=== PATIENT | male | born 1965 | race Caucasian/White ===

== ENCOUNTER 2018-05-16 13:43 | Outpatient (CLI) | payer OTHER ==
--- NOTE | 2018-05-16 14:15 | XRAY Report ---
Reason: R ACL REPAIR 96 NOW WITH MEDIAL JOINT PAIN, NO REC Procedure Date: 05/16/2018 Accession Number: [id number] / [id number] Procedure: XR - Knee 3 View RT CPT Code: FULL RESULT: EXAM: RIGHT KNEE RADIOGRAPHY EXAM DATE: 05/16/2018 01:55 PM. CLINICAL HISTORY: R ACL repair 1996 now with medial joint pain, no known trauma or specific injury. COMPARISON: None. TECHNIQUE: 3 views. FINDINGS: Bones: No fracture or bone lesion. There is evidence of prior ACL repair with anchors in the distal femur and proximal tibia. There is lucency around the tibial anchor measuring approximately 3.5 mm. Joints: No subluxation or dislocation. A large knee joint effusion is present. There is mild joint space narrowing at the medial compartment and patellofemoral compartment. There is mild tricompartmental osteophyte formation, most advanced at the patellofemoral compartment. Soft Tissues: Normal. No soft tissue swelling. IMPRESSION: 1. Evidence of prior ACL repair. There is lucency around the proximal tibial anchor, raising the possibility of loosening or infection. 2. Large knee joint effusion. 3. Mild degenerative osteoarthritis, most advanced at the patellofemoral compartment. [facility]
== END 2018-05-16 13:44 | disposition home or self-care (01) ==
LOC: DI 13:43
PROVIDERS: ATTEND Family Medicine
DX: M25.461 Effusion, right knee (principal); M17.11 Unilateral primary osteoarthritis, right knee

== ENCOUNTER 2018-06-18 09:20 | Outpatient (CLI) | payer OTHER ==
--- NOTE | 2018-06-20 13:42 | MRI Report ---
Reason: R ACL REPAIR NEW SWELLING PAIN Procedure Date: 06/18/2018 Accession Number: [id number] / [id number] Procedure: MRI - Knee RT W/O CPT Code: FULL RESULT: EXAM: RIGHT KNEE MRI WITHOUT CONTRAST EXAM DATE: 06/18/2018 10:44 AM. CLINICAL HISTORY: Right ACL repair. New swelling and pain. COMPARISON: 05/16/2018 radiograph. TECHNIQUE: Multiplanar, multisequence T1-weighted and fluid-sensitive sequences of the knee without contrast. Other: None. FINDINGS: Bones: Moderate tibiofemoral and mild patellofemoral osteophytes are present. No fractures. No periarticular marrow edema. Articular Cartilage: The central patellar cartilage demonstrates mild thinning and surface irregularity. There is moderate thinning and surface irregularity of the central trochlear cartilage. A focus of full-thickness cartilage loss from the inferior lateral femoral condyle measures 6 x 6 mm. A focus of full-thickness cartilage loss in the inferior medial femoral condyle measures 18 x 19 mm. Medial Meniscus: Longitudinal and partial radial tearing is seen in the posterior horn of the medial meniscus. Lateral Meniscus: The lateral meniscus is intact. Cruciate Ligaments: The anterior cruciate ligament has been reconstructed and the graft is intact. The posterior cruciate ligament is intact. Collateral Ligaments: The medial collateral and lateral collateral ligamentous structures are intact. Tendons: The quadriceps, popliteus, and semimembranosus tendons are unremarkable. The patellar tendon has longitudinal separation indicating that it was the site of the cruciate ligament reconstruction graft harvest. Musculature: No edema or fatty atrophy. Other: A moderate knee effusion is present. No popliteal cyst. No loose bodies. The medial and lateral retinacula are intact. Prepatellar subcutaneous edema is seen. IMPRESSION: 1. Moderate osteoarthritis. 2. Complex tear of the posterior horn of the medial meniscus. 3. Anterior cruciate ligament reconstruction intact. 4. Moderate knee effusion. [facility] MUSCULOSKELETAL RADIOLOGY SECTION
== END 2018-06-18 09:21 | disposition home or self-care (01) ==
LOC: DI 09:20
PROVIDERS: ATTEND Family Medicine
DX: M17.11 Unilateral primary osteoarthritis, right knee (principal); S83.231A Complex tear of medial meniscus, current injury, right knee, initial encounter; M25.461 Effusion, right knee